=== PATIENT | female | born 1985 | race Caucasian/White ===

== ENCOUNTER 2017-06-02 18:49 | Emergency (ER) | payer SELFPAY ==
[~2017-06-02] VITALS: Ht 167.6 cm; Wt 65.8 kg
[2017-06-02 19:45] VITALS: BP 119/65
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
== END 2017-06-02 20:52 | disposition home or self-care (01) ==
LOC: ER 18:49
DX: R07.81 Pleurodynia (principal); F32.9 Major depressive disorder, single episode, unspecified; I10 Essential (primary) hypertension; G47.00 Insomnia, unspecified; F90.9 Attention-deficit hyperactivity disorder, unspecified type; F17.210 Nicotine dependence, cigarettes, uncomplicated; Z88.0 Allergy status to penicillin; Z90.710 Acquired absence of both cervix and uterus
CPT/HCPCS: 71101; 99284-25

== ENCOUNTER 2017-06-14 18:06 | Emergency (ER) | payer SELFPAY ==
[2017-06-14 18:20] VITALS: BP 116/70
[2017-06-14] MEDS ORDERED: TRAM-48 PO (19:29)
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
== END 2017-06-14 19:41 | disposition home or self-care (01) ==
LOC: ER 18:06
DX: S93.401A Sprain of unspecified ligament of right ankle, initial encounter (principal); F32.9 Major depressive disorder, single episode, unspecified; I10 Essential (primary) hypertension; F90.9 Attention-deficit hyperactivity disorder, unspecified type; G47.00 Insomnia, unspecified; F15.10 Other stimulant abuse, uncomplicated; Z88.0 Allergy status to penicillin; X58.XXXA Exposure to other specified factors, initial encounter; Y93.67 Activity, basketball; Y92.89 Other specified places as the place of occurrence of the external cause; Y99.8 Other external cause status
CPT/HCPCS: 73610; 99284; L4350